=== PATIENT | female | born 1945 | race Caucasian/White ===

== ENCOUNTER 2024-01-15 06:50 | Day surgery (SDC) | payer MEDICARE, OTHER ==
[2024-01-09 09:31] VITALS: BP 141/78
[~2024-01-15] VITALS: Ht 160 cm; Wt 71.8 kg
[~2024-01-15 06:50] MED LIST: AMITRIPTYLINE H10 MG PO; COZAAR25 MG PO; ELDERBERRY IMM1 EACH PO; ESTRACE42.5 GM VAGINAL; GEMTESA75 MG PO; HYDROXYZINE HCL10 MG PO; IRON325 M1 PO; LACTATED RINGER'S 1,000 ML IV SCH; MAGNESIUM250 M1 PO; MULTIPLE VITAM1 EAC2 PO; NITROFURANTOIN100 M1 PO; POTASSIUM99 M3 PO; VITAMIN B121000 MCG PO; VITAMIN D325 MCG PO; VITAMIN E100 UNI2 PO
[2024-01-15] MEDS ORDERED: LIDOCAINE HCL 1% 5 ML SDV INJ ONE (07:00)
[2024-01-15] MEDS ORDERED: CEFAZOLIN SODIUM 2 GM/20 ML SYR IV SCH (07:00)
[2024-01-15] MEDS ORDERED: IBLOOD GLUCOSE TEST STRIP 1 EA TEST VI PRN (07:00)
[2024-01-15 07:02] VITALS: BP 156/63
[2024-01-15] MEDS ORDERED: DICLOFENAC SODI75 MG PO (07:12)
[2024-01-15] MEDS ORDERED: HYDROmorphone HCL 1 MG/ML SYR IV PRN (07:30)
[2024-01-15] MEDS ORDERED: MORPHINE SULFATE 4 MG/ML VIAL IV PRN (07:30)
[2024-01-15] MEDS ORDERED: PHENAZOPYRIDINE HCL 95 MG TAB PO PRN (07:30)
[2024-01-15] MEDS ORDERED: OXYCODONE/APAP 5/325 TAB PO PRN (07:30)
[2024-01-15] MEDS ORDERED: ondansetron HCL 4 MG/2 ML VIAL IV PRN (07:30)
--- NOTE | 2024-01-15 07:35 | NUR ---
VISITED DURING SPIRITUAL CARE ROUNDS. PT APPEARED TO BE SLEEPING. DID NOT DISTURB. PROVIDED PRAYER.
--- NOTE | 2024-01-15 08:32 | NUR ---
IN WAITING AREA. UP TO BR PREOP TO VOID.
[2024-01-15] MEDS ORDERED: DEXAMETHASONE SOD PHOS 4 MG/ML VIAL ONE (08:38)
[2024-01-15] MEDS ORDERED: ondansetron HCL 4 MG/2 ML VIAL ONE (08:38)
[2024-01-15] MEDS ORDERED: propofoL 200 MG/20 ML VIAL ONE (08:38)
[2024-01-15] MEDS ORDERED: KETAMINE in NS 50 MG/5 ML SYR ONE (08:42)
[2024-01-15] MEDS ORDERED: fentaNYL citrate 100 MCG/2 ML VIAL ONE (08:55)
--- NOTE | 2024-01-15 09:57 | NUR ---
01/15/24 0957 Cristine Ramires PATIENT REPORTS "I REALLY NEED TO GO PEE." PATIENT AMBULATES TO THE BATHROOM, WITH MY STANDBY ASSIST. SHE DOES WELL WITH THIS. SHE IS EDUCATED ON PULLING THE CALL LIGHT WHEN SHE IS READY TO STAND UP. SHE VERBALIZES UNDERSTANDING.
[2024-01-15 10:44] VITALS: BP 174/59
== END 2024-01-15 10:54 | disposition home or self-care (01) ==
LOC: OPS 06:50 → DS 06:50 → OPS 08:20
PROVIDERS: ATTEND Urology
PROC: 0TVD0ZZ Restriction of Urethra, Open Approach (ICD-10-PCS; principal; 2024-01-15 08:20)
DX: N30.10 Interstitial cystitis (chronic) without hematuria (principal); N39.3 Stress incontinence (female) (male); N32.81 Overactive bladder; I10 Essential (primary) hypertension; K21.9 Gastro-esophageal reflux disease without esophagitis; Z79.899 Other long term (current) drug therapy; E78.5 Hyperlipidemia, unspecified; Z88.0 Allergy status to penicillin; Z88.5 Allergy status to narcotic agent
CPT/HCPCS: 00910; J0690; J1100; J2405; J2704; J3010; J3490; J7121; L8606